=== PATIENT | male | born 1985 | race Two or more races ===

== ENCOUNTER 2025-05-26 00:56 | Emergency (ER) | payer OTHER ==
[~2025-05-26] VITALS: Ht 177.8 cm; Wt 96.0 kg
[2025-05-26 02:27] LABS: Urine Budding Yeast OCCASIONAL /hpf (None Seen); Urine Protein, UAD Negative (Negative)
--- NOTE | 2025-05-26 02:35 | ED.PDOC ---
GI ASSESSMENT HPI Comments 39-year-old male with no significant past medical history brought in by complaining of abdominal pain. Patient states he has been having abdominal pain since yesterday morning, located primarily at the periumbilical/epigastric area, sharp/stabbing, intermittent, 9/10 intensity, associated with abdominal bloating , diarrhea and headache. Patient denies any nausea, vomiting, urinary symptoms or fever. Patient states he took Tylenol without relief. Chief Complaint: Abdominal Pain Time Seen by MD: 02:34 Primary Care Provider: Uzair Woodward Reviewed Notes: Nurses Notes Allergies: Coded Allergies: NO KNOWN ALLERGIES (Unverified , 05/26/25) Home Meds Active Scripts Omeprazole Magnesium (Omeprazole) 20 Mg Tab, 20 MG PO DAILY, #30 TAB Prov:JOSSE TAYLOR MD 05/26/25 Dicyclomine Hcl (BENTYL CAPSULE) 10 Mg Cp, 2 CAP PO Q6HPRN PRN, #30 CAP 3 Refills Prov:JOSSE TAYLOR MD 05/26/25 Hydrocodone-Acetaminophen (Hydrocodone Bitartrate/AC 5-325 mg) 1 Tab Tab, 1 TAB PO Q6HP PRN, #10 TAB Prov:JOSSE TAYLOR MD 05/26/25 Information Source: Patient Mode of Arrival: Ambulatory Timing: Hours Duration: Intermittent Quality: Sharp Vomitus: None Stool: Loose, Watery Severity: Moderate Recent: None Recent Hx of: None Pain Location: Epigastric, Periumbilical Modifying Factors: Nothing Associated sign and symptoms: Diarrhea, Abdominal Pain Past Medical History PAST MEDICAL HISTORY: Denies Surgical History: Denies all surgeries Family History Family History: Reviewed,noncontributory to illness Social History Smoker: Non-Smoker Alcohol: Denies ETOH Use Drugs: Denies Drug Use Lives In: Home Constitutional: denies: chills, diaphoresis, fatigue, fever, malaise, sweats, weakness, others EENTM: denies: blurred vision, double vision, ear bleeding, ear discharge, ear drainage, ear pain, ear ringing, eye pain, eye redness, hearing loss, mouth pain, mouth swelling, nasal discharge, nose bleeding, nose congestion, nose pain, photophobia, tearing, throat pain, throat swelling, voice changes, others Respiratory: denies: cough, hemoptysis, orthopnea, SOB at rest, shortness of breath, SOB with excertion, stridor, wheezing, others Cardiovascular: denies: chest pain, dizzy spells, diaphoresis, Dyspnea on exertion, edema, irregular heart beat, left arm pain, lightheadedness, palpitations, PND, syncope, others Gastrointestinal: reports: abdomen distended, abdominal pain, diarrhea; denies: blood streaked bowels, constipated, dysphagia, difficulty swallowing, hematemesis, melena, nausea, poor appetite, poor fluid intake, rectal bleeding, rectal pain, vomiting, others Genitourinary: denies: burning, dysuria, flank pain, frequency, hematuria, incontinence, penile discharge, penile sore, pain, testicle pain, testicle swell ing, urgency, others Neurological: denies: dizziness, fainting, headache, left sided numbness, left sided weakness, numbness, paresthesia, pre-existing deficit, right sided numbness, right sided weakness, seizure, speech problems, tingling, tremors, weakness, others Musculoskeletal: denies: back pain, gout, joint pain, joint swelling, muscle pain, muscle stiffness, neck pain, others Integumetry: denies: bruises, change in color, change in hair/nails, dryness, laceration, lesions, lumps, rash, wounds, others Allergic/Immunocompromised: denies: Difficulty Healing, Frequent Infections, Hives, Itching, others Hematologic/Lymphatic: denies: anemia, blood clots, easy bleeding, easy bruising, swollen glands, others Endocrine: denies: excessive hunger, excessive sweating, excessive thirst, excessive urination, flushing, intolerance to cold, intolerance to heat, unexplained weight gain, unexplained weight loss, others Psychiatric: denies: anxiety, bipolar disorder, depression, hopeless, panic disorder, schizophrenia, sleepless, suicidal, others Physical Exam General Appearance: No Apparent Distress HEENT: Other (Pupils and face symmetric. Moist mucous membranes.) Neck: Full Range of Motion, Normal Inspection Respiratory: Lungs Clear, No Accessory Muscle Use, No Respiratory Distress, Normal Breath Sounds Cardiovascular: No Edema, No JVD, Regular Rate/Rhythm Breast Exam: Deferred Gastrointestinal: Diffuse, Soft, Tenderness Genitalia: Deferred Pelvic: Deferred Rectal: Deferred Extremities: Normal inspection, Normal range of motion, Non-tender, No pedal edema Neurologic: Alert (Oriented x4), Normal Affect, Normal Mood, Other (Ambulatory) Cerebellar Function: NOT DONE Reflexes: NOT DONE Skin: Dry, Normal Color, Warm Lymphatic: NOT DONE Was a procedure done? Was a procedure done?: No GI differential Dx Differential Diagnosis: Bowel Obstruction, Constipation, Diverticular disease, Gastritis/PUD, Gastroenteritis, Hernia, Inflammatory BD, UTI, Urolithiasis, Electrolyte Imbalance, Food Poisoning, Bacterial, Viral, Impaction, Stress Ulcer X-Ray, Labs, Meds, VS Vital Signs Date Time Temp Pulse Resp B/P (MAP) Pulse Ox O2 Delivery O2 Flow Rate FiO2 05/26/25 04:49 95 19 139/99 05/26/25 04:38 98 Room Air* 0 21 05/26/25 04:37 98.4 95 16 139/99 (112) 94 98.4 05/26/25 01:40 98.6 85 16 143/101 (115) 97 98.6 Lab Test 05/26/25 02:46 05/26/25 01:45 Range/Units White Blood Count 8.7 4.4-10.8 10^3/uL Red Blood Count 5.51 4.5-5.90 10^6/uL Hemoglobin 16.3 13.5-17.5 g/dL Hematocrit 47.3 41.0-53.0 % Mean Corpuscular Volume 86.0 80.0-100.0 fL Mean Corpuscular Hemoglobin 29.6 28.0-32.0 pg Mean Corpuscular Hemoglobin Concent 34.4 32.0-36.0 g/dL Red Cell Distribution Width 13.5 11.8-14.3 % Platelet Count 265 140-450 10^3/uL Mean Platelet Volume 7.6 6.9-10.8 fL Neutrophils (%) (Auto) 78.6 37.0-80.0 % Lymphocytes (%) (Auto) 12.4 10.0-50.0 % Monocytes (%) (Auto) 8.7 0.0-12.0 % Eosinophils (%) (Auto) 0.1 0.0-7.0 % Basophils (%) (Auto) 0.2 0.0-2.0 % Neutrophils # (Auto) 6.8 1.6-8.6 10 ^3/uL Lymphocytes # (Auto) 1.1 0.4-5.4 10 ^3/uL Monocytes # (Auto) 0.8 0-1.3 10 ^3/uL Eosinophils # (Auto) 0 0-0.8 10 ^3/uL Basophils # (Auto) 0 0-0.2 10 ^3/uL Nucleated Red Blood Cells 0.1 % Sodium Level 133 L 136-145 mmol/L Potassium Level 3.8 3.5-5.1 mmol/L Chloride Level 99 98-107 mmol/L Carbon Dioxide Level 25 20-31 mmol/L Anion Gap 9 5-15 Blood Urea Nitrogen 9 9-23 mg/dL Creatinine 0.73 0.700-1.30 mg/dL Glomerular Filtration Rate Calc 119 >90 mL/min BUN/Creatinine Ratio 12.3 10.0-20.0 Serum Glucose 125 H 74-106 mg/dL Calcium Level 9.4 8.7-10.4 mg/dL Total Bilirubin 0.6 0.2-1.0 mg/dL Aspartate Amino Transferase (AST) 27 13-40 U/L Alanine Aminotransferase (ALT) 53 H 7-40 U/L Alkaline Phosphatase 74 46-116 U/L Total Protein 7.5 5.7-8.2 g/dL Albumin 4.8 3.2-4.8 g/dL Lipase 29 12-53 U/L Urine Color Light-yellow Yellow Urine Clarity Clear Clear Urine pH 7.0 5.0-9.0 Urine Specific [place] 1.016 1.001-1.035 Urine Protein Negative Negative Urine Ketones 1+ H Negative Urine Blood Negative Negative /uL Urine Nitrite Negative Negative Urine Bilirubin Negative Negative Urine Urobilinogen Normal Negative mg/dL Urine Leukocyte Esterase Negative Negative /uL Urine RBC <1 0 - 3 /hpf Urine Microscopic WBC 2 0-3 /HPF Urine Squamous Epithelial Cells None seen <5 /hpf Urine Bacteria None seen None Seen /hpf Urine Mucus Few None Seen Urine Yeast (Budding) Occasional None Seen /hpf Urine Glucose Normal Normal mg/dL Current Medications Medications (Trade) Dose Ordered Sig/Irma Route Start Time Stop Time Status Last Admin Sodium Chloride 1,000 ml @ 1,000 mls/hr Q1H ONCE IV 05/26/25 02:30 05/26/25 03:29 DC 05/26/25 04:49 Morphine Sulfate 4 mg ONCE ONCE IV 05/26/25 02:30 05/26/25 02:31 DC 05/26/25 04:49 Ondansetron HCl (Zofran) 4 mg ONCE ONCE IV 05/26/25 02:30 05/26/25 02:31 DC 05/26/25 04:49 Pantoprazole Sodium (Protonix) 40 mg ONCE ONCE IV 05/26/25 02:30 05/26/25 02:31 DC 05/26/25 04:48 PROCEDURE(s): ABPL - CT AB PEL WO CON-NO ORAL OR IV REASON: diffuse abd pain, diarrhea ORDER NUMBER(s): [id number], ACCESSION NUMBER(s): [id number] Examination: ABPL CLINICAL INDICATION: diffuse abd pain, diarrhea COMPARISON: None. CONTRAST USED: None. TECHNIQUE: A plain CT study of the abdomen and pelvis is performed. The examination was performed with [address] scan done according to ALARA (As Low as Reasonably Achievable). Multiplanar reconstructions were obtained. FINDINGS: CT ABDOMEN: Lung Base: The evaluation of lung bases demonstrates no focal infiltrates or pleural effusion. Unenhanced Liver: Normal size liver with fatty infiltration of liver. The portal venous radicles are normal. There is no intrahepatic biliary radicle dilatation. Gallbladder is unremarkable. No intraluminal pathology. The common bile duct is not dilated. Unenhanced Pancreas: The pancreas is normal in size and shape. No focal lesion is seen within. The peripancreatic fat planes are normal. Unenhanced Spleen: The spleen is normal in size and does not show any focal abnormality. Retroperitoneum: Bilateral adrenal glands appear unremarkable. There is no significant retroperitoneal lymphadenopathy. The kidneys are normal in size with no hydronephrosis. No evidence of renal or ureteric calculus. Vessels: Aorta, IVC and the mesenteric vessels are limited in evaluation due to lack of intravenous contrast. No evidence of aneurysmal dilatation of the abdominal or infrarenal aorta. Stomach and small Bowel: The bowel loops are unremarkable. There is no ascites. Omental fat containing umbilical hernia [14 x 6]. Skeletal System: No acute osseous abnormality or focal osseous lesion. CT PELVIS: Appendix is visualized and appears unremarkable measures approximately 3 mm in diameter. Colon and large bowel: Large bowel loops are unremarkable. No evidence of diverticulosis or diverticulitis. Bladder: Normally distended and appears unremarkable. No intraluminal pathology. Prostate and seminal vesicles appear unremarkable. No pelvic lymphadenopathy is identified. No abnormal fluid collection is seen. IMPRESSION: 1. No acute intra-abdominal pathology. No abdominal fat stranding or collection. No evidence of renal or ureteric calculus. 2. Gallbladder, pancreas, and appendix appear unremarkable. No inflammatory bowel wall thickening or features of bowel obstruction. Omental fat-containing umbilical hernia [14 x 6]. 3. Mild fatty infiltration of the liver. No discrete focal lesion. Electronically Signed 05/26/2025 04:08 Adriel Dunne X-Ray, Labs, Meds, VS Comment 39-year-old male with no significant past medical history complaining of abdominal pain Vitals remarkable for BP 143/101 Exam remarkable for diffuse abdominal tenderness to palpation Rhythm strip independently interpreted by me: Sinus rhythm, rate 85, no ectopy. CT abdomen and pelvis IMPRESSION: 1. No acute intra-abdominal pathology. No abdominal fat stranding or collection. No evidence of renal or ureteric calculus. 2. Gallbladder, pancreas, and appendix appear unremarkable. No inflammatory bowel wall thickening or features of bowel obstruction. Omental fat-containing umbilical hernia [14 x 6]. 3. Mild fatty infiltration of the liver. No discrete focal lesion. CBC, comprehensive, lipase, UA unremarkable for any abnormality of acute significance Patient treated with the following in the ED: 1 L 0.9 normal saline IV bolus, morphine 4 mg IV, Zofran 4 mg IV, Protonix 40 mg IV On re-evaluation, pain has improved. Vitals were stable. Repeat abdominal exam was benign. Patient appears stable for discharge with close outpatient follow- up with his primary physician. Rx Bentyl, [place], omeprazole Time of 1ST Reevaluation: 02:27 Reevaluation 1ST: Unchanged Time of 2ND Reevaluation: 04:32 Reevaluation 2ND: Improved Patient Education/Counseling: Diagnosis, Treatment Family Education/Counseling: No Family Present SEPSIS Sepsis Screen Date sepsis recognized/suspect: May 26, 2025 Time Sepsis recognized/suspect: 014 Recent Procedure: No On Antibiotic Therapy: No Respiratory Rate >20: No Heart Rate >90: No Temp<36 C (96.8 F) or >38.3 C: No SBP <90 or MAP <65 mmHG: No New Acute Mental Status Change: No Is the patient on CPAP, BIPAP,: No Physician Orders Ct Ab Pel Wo Con-No Oral Or Iv (05/26/25 02:26) Vital Signs Date Time Temp Pulse Resp B/P (MAP) Pulse Ox O2 Delivery O2 Flow Rate FiO2 05/26/25 04:49 95 19 139/99 05/26/25 04:38 98 Room Air* 0 21 05/26/25 04:37 98.4 95 16 139/99 (112) 94 98.4 05/26/25 01:40 98.6 85 16 143/101 (115) 97 98.6 Laboratory Tests Test 05/26/25 02:46 White Blood Count 8.7 10^3/uL (4.4-10.8) Medications Medications Dose Ordered Sig/Irma Route Start Time Stop Time Status Last Admin Dose Admin Morphine Sulfate 4 mg ONCE ONCE IV 05/26/25 02:30 05/26/25 02:31 DC 05/26/25 04:49 Ondansetron HCl 4 mg ONCE ONCE IV 05/26/25 02:30 05/26/25 02:31 DC 05/26/25 04:49 Pantoprazole Sodium 40 mg ONCE ONCE IV 05/26/25 02:30 05/26/25 02:31 DC 05/26/25 04:48 Sodium Chloride 1,000 ml @ 1,000 mls/hr Q1H ONCE IV 05/26/25 02:30 05/26/25 03:29 DC 05/26/25 04:49 Departure 1 Departure Time of Disposition: 04:32 Impression: Primary Impression: Abdominal pain Qualified Codes: R10.84 - Generalized abdominal pain Disposition: 01 HOME / SELF CARE / HOMELESS Condition: Stable Additional Instructions: Your blood and urine tests were unremarkable. Your CT scan was unremarkable. Your symptoms may be due to a viral illness. I have prescribed medication for your symptoms. Follow-up with your primary doctor in 1-2 days. Return to ER for persistent or worsening symptoms. e-Prescriptions Omeprazole Magnesium (Omeprazole) 20 Mg Tab 20 MG PO DAILY, #30 TAB Prov: JOSSE TAYLOR MD 05/26/25 Dicyclomine Hcl (BENTYL CAPSULE) 10 Mg Cp 2 CAP PO Q6HPRN PRN, #30 CAP 3 Refills Prov: JOSSE TAYLOR MD 05/26/25 Hydrocodone-Acetaminophen (Hydrocodone Bitartrate/AC 5-325 mg) 1 Tab Tab 1 TAB PO Q6HP PRN, #10 TAB Prov: JOSSE TAYLOR MD 05/26/25 Discharged With: Spouse Critical Care Note Critical Care Time?: No Stability Stability form required: No Heart Score Heart Score: Heart Score Response (Comments) Value History N/A 0 EKG N/A 0 Age N/A 0 Risk Factors N/A 0 Troponin N/A 0 Total 0 I personally scribed for JOSSE TAYLOR MD ([email or web address]) on 05/26/25 at 02:34. Electronically submitted by Harlan Zimmer ([employer]). I personally scribed for JOSSE TAYLOR MD ([email or web address]) on 05/26/25 at 04:52. Electronically submitted by Harlan Zimmer ([email or web address]). JOSSE TAYLOR MD May 26, 2025 02:34
[2025-05-26 02:55] LABS: Hematocrit 47.3 % (41.0-53.0); Hemoglobin 16.3 g/dL (13.5-17.5); Mean Corpuscular Hemoglobin 29.6 pg (28.0-32.0); Mean Corpuscular Volume 86.0 fL (80.0-100.0); Nucleated Red Blood Cells % 0.1 %
[2025-05-26 03:14] LABS: Alkaline Phosphatase 74 U/L (46-116); Anion Gap 9 (5-15); BUN/Creatinine Ratio 12.3 (10.0-20.0); Bilirubin, Total 0.6 mg/dL (0.2-1.0); Blood Urea Nitrogen 9 mg/dL (9-23); Calcium 9.4 mg/dL (8.7-10.4); Carbon Dioxide 25 mmol/L (20-31); Chloride 99 mmol/L (98-107); Lipase 29 U/L (12-53); Potassium 3.8 mmol/L (3.5-5.1); Total Protein 7.5 g/dL (5.7-8.2)
[2025-05-26 03:35] LABS: Alanine Aminotransferase 53 U/L (7-40); Albumin 4.8 g/dL (3.2-4.8); Glucose 125 mg/dL (74-106); Sodium 133 mmol/L (136-145)
--- NOTE | 2025-05-26 04:09 | DVH ---
Examination: ABPL CLINICAL INDICATION: diffuse abd pain, diarrhea COMPARISON: None. CONTRAST USED: None. TECHNIQUE: A plain CT study of the abdomen and pelvis is performed. The examination was performed w ith [address] scan done according to ALARA (As Low as Reasonably Achievable). Multiplana r reconstructions were obtained. FINDINGS: CT ABDOMEN: Lung Base: The evaluation of lung bases demonstrates no focal infiltrates or pleural effusion. Unenhanced Liver: Normal size liver with fatty infiltration of liver. The portal venous radicles ar e normal. There is no intrahepatic biliary radicle dilatation. Gallbladder is unremarkable. No intraluminal pathology. The common bile duct is not dilated. Unenhanced Pancreas: The pancreas is normal in size and shape. No focal lesion is seen within. The peripancreatic fat planes are normal. Unenhanced Spleen: The spleen is normal in size and does not show any focal abnormality. Retroperitoneum: Bilateral adrenal glands appear unremarkable. There is no significant retroperiton eal lymphadenopathy. The kidneys are normal in size with no hydronephrosis. No evidence of renal or ureteric calculus. Vessels: Aorta, IVC and the mesenteric vessels are limited in evaluation due to lack of intravenous contrast. No evidence of aneurysmal dilatation of the abdominal or infrarenal aorta. Stomach and small Bowel: The bowel loops are unremarkable. There is no ascites. Omental fat contai sheba umbilical hernia [14 x 6]. Skeletal System: No acute osseous abnormality or focal osseous lesion. CT PELVIS: Appendix is visualized and appears unremarkable measures approximately 3 mm in diameter. Colon and large bowel: Large bowel loops are unremarkable. No evidence of diverticulosis or diverti culitis. Bladder: Normally distended and appears unremarkable. No intraluminal pathology. Prostate and seminal vesicles appear unremarkable. No pelvic lymphadenopathy is identified. No abnormal fluid collection is seen. IMPRESSION: 1. No acute intra-abdominal pathology. No abdominal fat stranding or collection. No evidence of re nal or ureteric calculus. 2. Gallbladder, pancreas, and appendix appear unremarkable. No inflammatory bowel wall thickening o r features of bowel obstruction. Omental fat-containing umbilical hernia [14 x 6]. 3. Mild fatty infiltration of the liver. No discrete focal lesion. Electronically Signed 05/26/2025 04:08 Adriel Dunne
[2025-05-26] MEDS ORDERED: OMEP-434 PO (04:34)
[2025-05-26] MEDS ORDERED: DICY10CA PO (04:34)
[2025-05-26] MEDS ORDERED: HYDR-4902 PO (04:34)
[2025-05-26 04:37] VITALS: TEMP 98.4
[2025-05-26 04:38] VITALS: O2SAT 98
[2025-05-26] MEDS: PANTOPRAZOLE 40 MG/10 ML VIAL INJ IV ONE (04:48)
[2025-05-26] MEDS: SODIUM CHLORIDE 0.9% 1,000 ML IV ONE (04:49)
[2025-05-26] MEDS: MORPHINE SULFATE 4 MG/ML SYR/VIAL IV ONE (04:49)
[2025-05-26] MEDS: ONDANSETRON HCL 4 MG/2 ML VIAL IV ONE (04:49)
[2025-05-26 05:19] VITALS: BP 127/85; PULSE 83; RESP 18
== END 2025-05-26 05:41 | disposition home or self-care (01) ==
LOC: ER 00:56
DX: R10.13 Epigastric pain (principal); R19.7 Diarrhea, unspecified; Z79.899 Other long term (current) drug therapy
CPT/HCPCS: 36415; 74176; 80053; 81001; 83690; 85025; 96361; 96374; 96375; 99285; J2270; J2405; J2470; J7030